=== PATIENT | female | born 1980 | race Caucasian/White ===

== ENCOUNTER 2018-02-09 19:52 | Observation (INO) ==
[2018-02-09] MEDS ORDERED: Betamethasone Acet/SodPhos 6 MG/ML MDV IM SCH (20:15)
[2018-02-09] MEDS ORDERED: Azithromycin 500 MG in D5% in Water 250 ML IVPB ONE (20:23)
[2018-02-09] MEDS ORDERED: Ringers Solution, Lactated 1,000 ML IVC SCH (20:30)
--- NOTE | 2018-02-09 20:59 | OB/GYN History & Physical ---
Date of Encounter: 02/09/18 Time of Encounter: 20:33 Assessment and Plan (1) premature rupture of membranes (PPROM) with unknown onset of labor Current visit: Yes Status: Acute PPROM for moderate amount clear fluid at 1930. Ampicillin and zithromax started prior to transfer. Pt denies contractions. Magnesium sulfate bolus started. Will give 6 grams. GC/CT and GBS collected prior to start of antibiotics. Transfer to [facility] via ambulance. Dr. eRji Campoverde accepting. POC discussed with Dr. Cevallos and Dr. Campoverde (2) 32 weeks gestation of Current visit: Yes Status: Acute (3) Tobacco abuse Current visit: Yes Status: Acute (4) History of delivery, currently in third trimester Current visit: Yes Status: Acute (5) Drug abuse, marijuana Current visit: Yes Status: Acute (6) Echogenic kidneys on renal ultrasound Current visit: Yes Status: Acute History of Present Illness Chief complaint: leaking fluid HPI: Ms. Charles is a 37 year old female presenting at 32 weeks gestation with c/o leaking clear fluid starting at 1930 this evening. She denies any pain at this time. No bleeding. No fevers or other signs of infection. Good FM. This is complicated by AMA status, tobacco use, echogenic kidneys on US, history of delivery of fifth child at 32 weeks, and grand multiparity. She is currently on progesterone injections for her history of delivery. She also has a history of PTSD. Her last pap was normal with + HPV. She also had trichomonas in September 2017 for which she was treated. Blood type A positive Rubella immune Syphillis negative HIV negative Hep Bsag negative Quad screen normal Cell free DNA normal GBS unknown Past Med Surg Social Fam HX - Past Medical History Medical history: no medical history Psychiatric history: anxiety - Past Surgical History Surgical History: other - Social History Smoking Status: Current every day smoker Packs per day: 1/2 Smokeless Tobacco Status: No Alcohol use: none Drug use: none - Family History Mother Living Status: Still Living Hx Family Cardiac Disorders: Yes (HTN) Hx Family Endocrine Disorder: Yes (diabetes) Hx Family Medical Disorders: Yes (dementia) Obstetrical History - Pregnancies : 10 Para: 8 Term: 7 : 1 Ab's: 1 Livin - History/Complications History/Complications: Pt does not have custody of all children. Medications and Allergies [id number]/Iron Fumarate/FA/Dss [ 19 Tablet] 1 tab PO DAILY 02/09/18 [ History] 3 Allergy/AdvReac Type Severity Reaction Status Date / Time No Known Allergies Allergy Verified 02/09/18 20:34 Review of System OB All systems PM: reviewed and no additional remarkable complaints except as stated Exam - Constitutional Constitutional: well developed, well nourished, no acute distress - HEENT HEENT: Mucus Membranes Moist - Lungs Respiratory exam: CTAB - Cardiovascular Cardiovascular exam: RRR - Abdomen Abdomen: Present: gravid, non tender - Extremities Extremities exam: normal inspection - Vulva Vulva: bilateral: normal - Cervix Dilation: 3 Effacement: 80 Station: -2 - Uterus Uterus exam: Present: normal size. Absent: tender - Anus/Rectum Anus/Rectum: Present: normal perianal skin - Comments Comments: SSE with +pooling, +nitrazine, +fern Results All other labs normal.
[2018-02-09 21:56] LABS: Bilirubin,Urine Negative (Negative); Blood,Urine Trace (Negative); Clarity,Urine Cloudy (Clear); Color,Urine Yellow (Yellow); Glucose,Urine (UA) Normal (Normal); Ketones,Urine Negative (Negative); Leukocyte Esterase,Urine Small (Negative); Nitrite,Urine Negative (Negative); PH,Urine 6.5 pH Units (5.0-8.0); Protein,Urine 30 mg/dL (Neg-Trace); Specific Gravity,Urine 1.011 (1.010-1.025); Urobilinogen,Urine Normal (Normal)
[2018-02-09 21:58] LABS: Bacteria,Urine Few per hpf (None-Few); Hyaline Casts,Urine None Seen per lpf (None-Few); Squamous Epithelial Cell,Urine Many per lpf (None-Few); WBC,Urine 30-50 per hpf (0-3)
[2018-02-09 22:02] LABS: Amphetamine Screen,Urine Negative ng/mL (Cutoff=1000); Barbiturate Screen,Urine Negative ng/mL (Cutoff=200); Benzodiazepines Screen,Urine Negative ng/mL (Cutoff=200); Cannabinoid Screen,Urine Negative ng/mL (Cutoff = 50); Cocaine Screen,Urine Negative ng/mL (Cutoff= 300); Opiate Screen,Urine Negative ng/mL (Cutoff=300); Phencyclidine Screen,Urine Negative ng/mL (Cutoff=25)
[2018-02-09 22:10] LABS: RBC,Urine 0-3 per hpf (0-3); Yeast,Urine Few per hpf (None Seen)
[2018-02-10] MEDS ORDERED: Ampicillin 2 GM in 0.9 % Sodium Chloride Mini Bag 100 ML IVPB SCH
== END 2018-02-09 21:55 | disposition short-term general hospital (02) ==
LOC: 1NENULAB
PROVIDERS: ADMIT Registered Nurse; ATTEND Registered Nurse